=== PATIENT | male | born 1945 | race Caucasian/White ===

== ENCOUNTER 2022-12-25 12:26 | Emergency (ER) | payer MEDICARE ==
[~2022-12-25] VITALS: Ht 175.3 cm; Wt 69.5 kg
[~2022-12-25 12:26] MED LIST: ASPI81EC PO; ASPIRIN 32325 MG/TAB PO; ATENOLOL50 MG PO; CENTRUM SILVER1 TA1 PO; COUMADIN 77.5 MG/TAB PO; FISH OIL CONC1000 MG PO; GLYBURIDE MICRON3 MG PO; METFORMIN HCL500 M1 PO; PLAVIX 75MG TAB75 MG PO; VITAMIN D3400 IU PO; VYTORIN PO; ZANTAC 150150 MG PO; ZOCOR 80MG80 MG PO
[2022-12-25 12:33] VITALS: TEMP 98.1
[2022-12-25 13:02] LABS: BASO % 0.5 % (0.0-2.0); EOS # 0.2 K/mm3 (0.0-0.7); EOS % 3.4 % (0.0-4.0); GRAN # 4.2 K/mm3 (1.4-6.5); GRAN % 71.5 % (42.2-75.2); HEMOGLOBIN 11.3 g/dl (13.5-18.0); LYMPH # 0.8 K/mm3 (1.2-3.4); LYMPH % 14.4 % (20.0-51.0); MEAN CELL VOLUME 90 fl (80.0-100.0); MEAN CORPUSCULAR HEMOGLOBIN 29 pg (27-31); MEAN CORPUSCULAR HGB CONC 33 g/dl (33.0-37.0); MEAN PLATELET VOLUME 8.9 fl (7.4-10.4); MONO # 0.6 K/mm3 (0.1-0.6); MONO % 9.9 % (1.7-9.3); PLATELET COUNT 227 K/mm3 (130-400); RED BLOOD COUNT 3.88 M/mm3 (4.20-5.60); REDCELL DISTRIBUTION WIDTH-CV 15.3 % (11.5-14.5)
[2022-12-25 13:05] LABS: HEMATOCRIT 34.8 % (42.0-52.0)
[2022-12-25 13:19] LABS: ALBUMIN 3.8 gm/dL (3.4-4.8); BILIRUBIN,TOTAL 0.6 mg/dL (0.2-1.2); CALCIUM 9.2 mg/dL (8.4-10.2); CREATININE, serum 0.88 mg/dL (0.72-1.25); POTASSIUM 4.8 mmol/L (3.5-4.5); TOTAL PROTEIN 6.8 gm/dL (6.2-8.1)
[2022-12-25 13:26] LABS: TROPONIN-I 0.041 ng/mL (0.00-0.033)
[2022-12-25 14:08] LABS: COLLECTION METHOD CLEAN CATCH
[2022-12-25 14:22] LABS: URINE APPEARANCE Clear (CLEAR/HAZY); URINE COLOR Yellow (YELLOW); URINE GLUCOSE 2+ (NEGATIVE); URINE KETONE Negative (NEGATIVE); URINE PROTEIN(semi-quant) 1+ (NEGATIVE); URINE UROBILINOGEN 0.2 E.U/dL (0.2-1.0)
[2022-12-25 14:23] LABS: URINE BLOOD Negative (NEGATIVE); URINE NITRATE Negative (NEGATIVE)
[2022-12-25 14:30] LABS: SQUAMOUS EPITHELIAL 0-2 /hpf (0-10); URINE BACTERIA None Seen /hpf (NONE SEEN)
[2022-12-25 16:36] VITALS: BP 174/80; PULSE 80
== END 2022-12-25 16:36 | disposition left against medical advice (07) ==
LOC: COL.ER 12:26
PROVIDERS: Physician Assistant
DX: R55 Syncope and collapse (principal); E87.20 Acidosis, unspecified; R77.8 Other specified abnormalities of plasma proteins; R79.89 Other specified abnormal findings of blood chemistry; E11.9 Type 2 diabetes mellitus without complications; I48.20 Chronic atrial fibrillation, unspecified; Z79.01 Long term (current) use of anticoagulants; Z79.4 Long term (current) use of insulin
CPT/HCPCS: J7030